=== PATIENT | female | born 1985 | race Caucasian/White ===

== ENCOUNTER 2019-11-11 18:15 | Emergency (ER) | payer MEDICAID ==
[~2019-11-11] VITALS: Ht 167.6 cm; Wt 107.6 kg
[2019-11-11 18:17] VITALS: BP 139/81
[2019-11-11] MEDS ORDERED: CARBAMIDE PEROXIDE EAR DROPS 6.5%, 15ML ONE (18:42)
[2019-11-11] MEDS ORDERED: CARBAMIDE PEROXIDE EAR DROPS 6.5%, 15ML LEFT EAR ONE (19:00)
--- NOTE | 2019-11-11 19:09 | NUR ---
ASSUMED CARE OF PT AT THIS TIME.
--- NOTE | 2019-11-11 19:37 | NUR ---
EAR IRRIGATED PER EDT.
== END 2019-11-11 19:38 | disposition home or self-care (01) ==
LOC: ED 19:00
DX: H61.22 Impacted cerumen, left ear (principal); R11.0 Nausea; R42 Dizziness and giddiness; G43.909 Migraine, unspecified, not intractable, without status migrainosus
CPT/HCPCS: 69209; 99282

== ENCOUNTER 2020-07-18 16:30 | Emergency (ER) | payer MEDICAID ==
[~2020-07-18] VITALS: Ht 167.6 cm; Wt 102.1 kg
[2020-07-18 16:32] VITALS: BP 160/86
--- NOTE | 2020-07-18 17:18 | NUR ---
LINE DRAWN AROUND RASH UNDER RIGHT ARM.
== END 2020-07-18 17:44 | disposition home or self-care (01) ==
LOC: ED 17:17
DX: L03.113 Cellulitis of right upper limb (principal); F17.200 Nicotine dependence, unspecified, uncomplicated
CPT/HCPCS: 99283